=== PATIENT | male | born 1955 | race Two or more races ===

== ENCOUNTER 2020-12-20 00:25 | Inpatient (IN) | payer MEDICARE, OTHER ==
[~2020-12-20] VITALS: Ht 172.7 cm; Wt 86.2 kg
[2020-12-20 01:00] VITALS: BP 152/95
[2020-12-20] MEDS ORDERED: ZOLPIDEM TARTRATE 5 MG TABLET PO PRN (01:00)
[2020-12-20] MEDS ORDERED: ACETAMINOPHEN 325 MG TABLET PO PRN (01:00)
[2020-12-20] MEDS ORDERED: MAGNESIUM HYDROXIDE 30 ML UDC PO PRN (01:00)
[2020-12-20] MEDS ORDERED: BLOOD SUGAR DIAGNOSTIC 1 EACH STRIP IN ONE (01:00)
[2020-12-20] MEDS ORDERED: MAG HYDROX/AL HYDROX/SIMETH 30 ML UDC PO PRN (01:00)
[2020-12-20] MEDS ORDERED: LORAZEPAM 1 MG TABLET PO PRN (01:30)
--- NOTE | 2020-12-20 01:30 | NUR ---
GPS HORTICULTURAL WORKER NOTES: RECEIVED A 64 Y/O MALE FROM [facility] DIRECT ADMIT TO GPS UNIT. PATIENT ARRIVED TO THE UNIT AROUND 0040 ON 12/20/20. PATIENT IS ON 5150 HOLD FOR GD. PER 5150 HOLD, PATIENT IS PARANOID, DELUSIONAL, STATED THAT," [employer] IMPLANTED A MICROPHONE IN HIS MOUTH AND THAT DEVICES IMPLANTED IN HIS NECK ARE EMITTING RADIO WAVES THAT ARE SUFFOCATING HIM. HIS THOUGHTS ARE DISORGANIZED AND HE IS UNABLE TO ARTICULATE PLAN FOR FOOD, CLOTHING AND MCC. UPON FACE TO FACE ASSESSMENT PATIENT IS ALERT AND ORIENTED X2, FORGETFUL, UNCOOPERATIVE, DISORGANIZED, SUSPICIOUS, PARANOID, DELUSIONAL, ANGRY MOOD, REFUSING CARE,HARD OF HEARING. PATIENT REPEATEDLY ASKING "WHY AM I HERE" REFUSES ALL PSYCHIATRIC QUESTIONING FOR ADMISSION PROCESS. PATIENT DENIES SI AT THIS TIME AND STATED," I AM NOT CRAZY." PATIENT REFUSED SKIN ASSESSMENT. PATIENT REFUSED TO SIGN ALL ADMISSION PAPERWORK. PATIENT HAS NO C/O PAIN AT THIS TIME. PATIENT HAS NO S/S OF DISTRESS. BREATHING IS EVEN AND UNLABORED WITH EQUAL RISE AND FALL OF THE CHEST, ON ROOM AIR. PATIENT IS UNDER THE PSYCHIATRIC CARE OF DR. WALKER AND THE MEDICAL CARE OF CHINTAN KANG. PATIENT BELONGINGS WERE INVENTORIED AND CHECKED FOR CONTRABAND. PATIENT WAS OFFERED FLUID AND SNACKS AND TOLERATED WELL. PATIENT IS REFUSED TO PROVIDE COVID VACCINE INFORMATION, PATIENT IS AMBULATORY/STEADY. CONTINENT. BED IS IN LOWEST POSITION AND LOCKED WITH SIDE RAILS UP X 2 FOR SAFETY. PATIENT REFUSED TO HAVE BED ALARM ON FOR SAFETY, GOT AGITATED AND ASKED THE NURSE TO TURN IT OFF, HAS POOR IMPULSE CONTROL. WILL CONTINUE TO MONITOR PATIENT Q15 FOR MOOD, SAFETY AND BEHAVIOR.
--- NOTE | 2020-12-20 01:42 | NUR ---
RN NOTE PATIENT IS UNCOOPERATIVE, EASILY AGITATED, ANXIOUS, REFUSED ACCU CHECK, MRSA, SKIN ASSESSMENT UPON ADMISSION. PATIENT IS HARD OF HEARING BILATERALLY. SUSPICIOUS, PARANOID, DELUSIONAL, NON COMPLAINT WITH PLAN OF CARE.
[2020-12-20] MEDS ORDERED: [UNRECOGNIZED DRUG - CODE] SQ (02:27)
[2020-12-20] MEDS ORDERED: DIPH25TA25 PO (02:27)
[2020-12-20] MEDS ORDERED: ACET-73 RC (02:27)
[2020-12-20] MEDS ORDERED: SENN-18 PO (02:27)
[2020-12-20] MEDS ORDERED: NITR0.4T48 SL (02:27)
[2020-12-20] MEDS ORDERED: FAMO20TA8 PO (02:27)
[2020-12-20] MEDS ORDERED: BISA-79 RC (02:27)
[2020-12-20 03:53] VITALS: BP 152/95
--- NOTE | 2020-12-20 05:54 | NUR ---
RN NOTE CHINTAN KANG RECONCILED PATIENT'S MEDICATIONS.
--- NOTE | 2020-12-20 07:35 | NUR ---
RN NOTE CALLED MARKUS AT [phone] AND [phone], LEFT A VOICEMAIL REGARDING PATIENT'S ADMISSION AT [facility], GPS UNIT WITH GPS UNIT PHONE NUMBER.
--- NOTE | 2020-12-20 07:37 | NUR ---
RN NOTE CALLED AND NOTIFIED DR. WALKER ABOUT PATIENT'S ADMISSION AT GPS UNIT AND ACKNOWLEDGED IT.
[2020-12-20 08:00] VITALS: BP 127/81
--- NOTE | 2020-12-20 11:26 | NUR ---
OMA Initial Discharge Plan: Patient would want to be discharged to [place] [id number] [address] [facility] [place] [address] and stated later will be flying to [facility]. OMA will work with the MD and treatment team to coordinate proper discharge.
--- NOTE | 2020-12-20 11:26 | NUR ---
OMA Family Contact: OMA contacted patient's daughter Kassie ([phone]) and left a voicemail to gather collateral.
[2020-12-20 16:00] VITALS: BP 147/80
[2020-12-20] MEDS: risperiDONE 1 MG TABLET PO SCH (17:00)
--- NOTE | 2020-12-20 17:28 | NUR ---
[address] Damon office and requested for Neuro consult as ordered by Dr. Carpenter.
--- NOTE | 2020-12-20 19:30 | NUR ---
RN NOTES RECEIVED PT FROM AM SHIFT RN FOR GONZALO. PT IN NO ACUTE DISTRESS AT THIS TIME. NO SOB NOTED. PATIENT'S BREATHING IS EVEN AND UNLABORED. SAFETY PRECAUTIONS IN PLACE. BED IN LOW LOCKED POSITION. WILL CONTINUE TO MONITOR Q15MIN ROUNDS FOR SAFETY AND BEHAVIOR.
[2020-12-20 20:00] VITALS: BP 132/81
--- NOTE | 2020-12-21 06:00 | NUR ---
RN NOTES TRAIN CALLER COORDINATED THAT PT REFUSED BLOOD DRAW, EXPLAINED RISKS AND BENEFITS BUT STILL REFUSED. SSIS DEVELOPER MADE AWARE.
--- NOTE | 2020-12-21 06:19 | NUR ---
RN NOTES BELONGINGS TURNED OVER TO NURSING OFFICE WITH REFERENCE #[id number]; BELONGINGS INCLUDES 3 CPs and 1 IPAD. PT AGREED FOR BELONGINGS TO BE TAKEN TO NURSING OFFICE.
--- NOTE | 2020-12-21 06:56 | NUR ---
RN NOTES ENDORSED PT IN STABLE CONDITION TO AM SHIFT RN FOR GONZALO.
[2020-12-21 08:00] VITALS: BP 108/65
[2020-12-21] MEDS: risperiDONE 1 MG TABLET PO SCH ×2 (09:00→17:00)
[2020-12-21 16:00] VITALS: BP 147/86
--- NOTE | 2020-12-21 17:07 | NUR ---
Pt. refused to take the Risperdal po, offered 3x and explained the importance and still refusing and said "I don't take meds".
[2020-12-21 20:39] VITALS: BP 136/83
--- NOTE | 2020-12-22 07:58 | NUR ---
Discharge Note: Patient is leaving AMA and chooses to be discharged to [address] [place] [address]; ([phone]). Patient appears alert and oriented x3 and appeared happy to being discharged. Patient denies suicidal or homicidal ideation. Patient denies visual/auditory hallucinations. [facility] located at [address], [address], [place] [address] ([phone]). Patient referred for intake evaluation (Psychiatry) at [facility] located at [address] [place] [phone]; ([phone]) on December 26 at 1:30 via telehealth. Patient presents with euthymic mood and congruent affect. Patient refused to sign the homeless waiver upon discharge and a copy was placed in the chart. Homeless resources were provided and include [address] information line for shelters and homeless resources. A copy of all resources given to patient was also placed in the chart.
[2020-12-22 08:00] VITALS: BP 115/63
--- NOTE | 2020-12-22 08:18 | NUR ---
RN-NOTES RECEIVED T.O ORDER FROM DR. WALKER TO DISCHARGE PATIENT AMA. NOTED AND CARRIED OUT. PATIENT SIGNED AMA PAPER.
[2020-12-22] MEDS: risperiDONE 1 MG TABLET PO SCH (09:00)
--- NOTE | 2020-12-22 09:11 | NUR ---
RN-NOTES PATIENT REFUSED RISPERDAL 0.5MG P.O STATED" I DON'T BELONG HERE AND I DON'T TAKE MEDICATIONS".OFFERED X3
--- NOTE | 2020-12-22 11:11 | NUR ---
RN-DISCHARGED NOTES PATIENT WAS DISCHARGED AMA BY DR. WALKER ( PSYCHIATRIST), DR. POZO (OIL AND GAS FIELD TECHNICIAN) MADE AWARE AND AGREED. PATIENT CHOOSES TO GO TO [facility] PER SW. PATIENT DID NOT VERBALIZE SI/HI,DENIES VISUAL/AUDITORY HALLUCINATIONS AT THE TIME OF DISCHARGED. PATIENT DID NOT SIGN ALL DISCHARGE PAPERS.PATIENT REFUSED FLU VACCINE AND FULL BODY ASSESSMENT PRIOR TO DISCHARGE. PATIENT LEFT THE UNIT IN STABLE CONDITION A/O X3 AMBULATORY STEADY GAIT.ALL BELONGINGS WAS GIVEN BACK TO THE PATIENT, LEFT VIA TAXI AND WAS ASSISTED BY ONE NITROGEN OPERATOR IN THE LOBBY FOR SAFETY. Addendum: 12/22/20 at 1244 by NHUNG KHANNA RN CORRECTIONS ON MY ABOVE NOTES. IT WAS QUEENIE NEWTON ( OIL AND GAS FIELD TECHNICIAN) AWARE OF PATIENT DISCHARGED.
== END 2020-12-22 11:07 | disposition left against medical advice (07) | DRG 885 ==
LOC: GPS 00:25
PROVIDERS: ADMIT Psychiatry & Neurology Psychiatry; ATTEND Hospitalist
DX: F29 Unspecified psychosis not due to a substance or known physiological condition (principal); Z91.14 Patient's other noncompliance with medication regimen; M50.30 Other cervical disc degeneration, unspecified cervical region; K29.70 Gastritis, unspecified, without bleeding; F22 Delusional disorders